=== PATIENT | female | born 1965 | race Caucasian/White ===

== ENCOUNTER 2025-03-31 13:34 | Inpatient (IN) | payer OTHER ==
[~2025-03-31] VITALS: Ht 157.5 cm; Wt 64.0 kg
[2025-03-31 13:35] VITALS: O2SAT 98
[2025-03-31] MEDS: NITROGLYCERIN 0.4MG TABLET SL SL PRN (15:05)
[2025-03-31 15:10] LABS: BASOPHILS % 0.6 % (0.0-2.0); EOSINOPHILS % 0.2 % (0.0-5.0); HEMATOCRIT. 44.1 % (36.0-48.0); HEMOGLOBIN. 14.5 g/dL (12.0-16.0); LYMPHOCYTES % 13.9 % (20.0-50.0); MEAN PLATELET VOLUME 9.4 fl (7.4-10.4); MONOCYTES % 3.8 % (2.0-8.0); NEUTROPHILS % 81.5 % (40.0-76.0); PLATELET 245 x1000/uL (130-400); RED BLOOD CELL COUNT 5.02 mill/uL (4.2-5.4); RED CELL DISTRIBUTION WIDTH 12.9 % (11.6-14.6)
[2025-03-31 15:29] LABS: CREATININE 0.7 mg/dL (0.6-1.0); UREA NITROGEN BLOOD 9 mg/dL (9-23)
[2025-03-31 15:30] LABS: TROPONIN I HIGH SENSITIVITY < 4 ng/L (3.0-34)
[2025-03-31] MEDS: MORPHINE SULFATE 4 MG/ML INJ (FOR IV/IM USE) IV ONE (15:31)
[2025-03-31 15:32] LABS: ETHANOL BLOOD < 10 mg/dL (<10)
[2025-03-31 17:23] LABS: TROPONIN I HIGH SENSITIVITY < 4 ng/L (3.0-34)
[2025-03-31] MEDS: ASPIRIN 325MG EC TABLET PO SCH (19:55)
[2025-03-31] MEDS ORDERED: ONDANSETRON HCL 4MG/2ML INJ IV PRN (20:00)
[2025-03-31] MEDS ORDERED: ACETAMINOPHEN 325MG TABLET PO PRN ×2 (20:00)
[2025-03-31] MEDS ORDERED: DOCUSATE SODIUM 100MG CAPSULE PO PRN (20:00)
[2025-03-31] MEDS ORDERED: DEXTROSE 50% WATER 50ML SYRINGE IV PRN (20:00)
[2025-03-31] MEDS ORDERED: IPRATROPIUM/ALBUTEROL 0.5-3(2.5)MG/3ML NEB HHN PRN (20:00)
[2025-03-31] MEDS: CLONIDINE 0.1MG TABLET PO PRN (20:18)
[2025-03-31] MEDS: AMLODIPINE 10MG TABLET PO SCH (21:00)
[2025-03-31] MEDS: INSULIN LISPRO 100 UNITS/ML SUBCUT SCH (21:00)
[2025-03-31] MEDS ORDERED: KETOROLAC 30MG/ML VIAL IV PRN (21:00)
[2025-03-31] MEDS ORDERED: NITROGLYCERIN 0.4MG TABLET SL SL PRN (21:00)
[2025-03-31] MEDS: BLOOD SUGAR DIAGNOSTIC STRIP TEST SCH (21:00)
[2025-03-31 22:40] LABS: CLARITY URINE CLEAR (CLEAR); COLOR URINE YELLOW (YELLOW); GLUCOSE URINE 3+ (NEGATIVE); KETONES URINE 3+ (NEGATIVE); LEUKOCYTE ESTERASE URINE NEGATIVE (NEGATIVE); NITRITE URINE NEGATIVE (NEGATIVE); OCCULT BLOOD URINE NEGATIVE (NEGATIVE); PH URINE 5.0 (4.5-8.0); PROTEIN URINE NEGATIVE (NEGATIVE); SPECIFIC GRAVITY URINE 1.021 (1.005-1.030); UROBILINOGEN URINE 0.2 E.U./dL (0.2-1.0)
[2025-03-31 22:57] LABS: *AMPHETAMINES SCREEN URINE NEGATIVE (NEGATIVE); *BARBITURATES SCREEN URINE NEGATIVE (NEGATIVE); *BENZODIAZEPINES SCREEN URINE NEGATIVE (NEGATIVE); *COCAINE SCREEN URINE NEGATIVE (NEGATIVE); CANNABINOID URINE SCREEN NEGATIVE (NEGATIVE); ECSTASY MDMA SCREEN URINE NEGATIVE (NEGATIVE); METHADONE URINE SCREEN NEGATIVE (NEGATIVE); OPIATES URINE SCREEN NEGATIVE (NEGATIVE); PHENCYCLIDINE URINE SCREEN NEGATIVE (NEGATIVE)
[2025-03-31 22:58] LABS: BACTERIA URINE TRACE; RBC URINE 0-2 /hpf (0-2); SQUAMOUS EPITHELIAL CELL URINE FEW /lpf (RARE/1+); WBC URINE 0-2 /hpf (0-2)
[2025-03-31 23:00] VITALS: BP 124/70; PULSE 70; RESP 19; TEMP 36.4; TEMP 36.418; O2SAT 97
[2025-03-31] MEDS ORDERED: METF-1150 MT (23:29)
[2025-03-31] MEDS ORDERED: LISI20TA31 MT (23:29)
[2025-03-31] MEDS ORDERED: SERT25TA74 MT (23:29)
[2025-03-31] MEDS: ATORVASTATIN CALCIUM 10MG TABLET PO SCH (23:44)
[2025-04-01 04:00] VITALS: BP 100/57; PULSE 80; RESP 18; TEMP 37; O2SAT 97
[2025-04-01 08:00] VITALS: BP 104/62; PULSE 70; RESP 20; TEMP 37; O2SAT 98
[2025-04-01 08:20] LABS: BASOPHILS % 0.9 % (0.0-2.0); EOSINOPHILS % 1.1 % (0.0-5.0); HEMATOCRIT. 41.1 % (36.0-48.0); HEMOGLOBIN. 13.7 g/dL (12.0-16.0); LYMPHOCYTES % 26.9 % (20.0-50.0); MEAN PLATELET VOLUME 9.6 fl (7.4-10.4); MONOCYTES % 6.4 % (2.0-8.0); NEUTROPHILS % 64.7 % (40.0-76.0); PLATELET 227 x1000/uL (130-400); RED BLOOD CELL COUNT 4.70 mill/uL (4.2-5.4); RED CELL DISTRIBUTION WIDTH 13.2 % (11.6-14.6)
[2025-04-01] MEDS: PANTOPRAZOLE SODIUM 40 MG/VIAL IV SCH (08:29)
[2025-04-01] MEDS: LOSARTAN 25 MG TABLET PO SCH (08:29)
[2025-04-01 08:30] LABS: CREATININE 0.6 mg/dL (0.6-1.0)
[2025-04-01] MEDS: AMLODIPINE 10MG TABLET PO SCH (08:30)
[2025-04-01] MEDS: ASPIRIN 81MG EC TABLET PO SCH (08:30)
[2025-04-01] MEDS: ENOXAPARIN 40MG/0.4ML SYR SUBCUT SCH (08:30)
[2025-04-01 08:31] LABS: CREATINE KINASE MB FRACTION < 0.5 ng/mL (0.5-3.6); LDL CHOLESTEROL 132 mg/dL (5-100); TRIGLYCERIDE 116 mg/dL (0-150); TROPONIN I HIGH SENSITIVITY < 4 ng/L (3.0-34); UREA NITROGEN BLOOD 13 mg/dL (9-23)
[2025-04-01 08:33] LABS: PHOSPHORUS 3.9 mg/dL (2.5-4.9)
[2025-04-01 08:35] LABS: T4 FREE 1.14 ng/dL (0.89-1.76)
[2025-04-01] MEDS: DEXT 5%/0.45% NACL 500ML 500 ML IV ONE (11:45)
[2025-04-01 12:00] VITALS: BP 110/71; PULSE 75; RESP 18; TEMP 36.3; O2SAT 97
[2025-04-01] MEDS ORDERED: ATOR10TA PO (14:15)
[2025-04-01] MEDS ORDERED: PANT40TA51 MT (14:15)
[2025-04-01] MEDS ORDERED: AMLO10TA80 PO (14:15)
[2025-04-01] MEDS ORDERED: ASPI-1406 PO (14:15)
[2025-04-01] MEDS ORDERED: METF-416 MT (14:16)
[2025-04-01 14:37] VITALS: BP 110/76; PULSE 82; RESP 20; TEMP 97.6
[2025-04-01 16:00] VITALS: BP 115/59; PULSE 71; RESP 20; TEMP 36.4; O2SAT 98
[2025-04-01 16:47] LABS: CREATINE KINASE MB FRACTION < 0.5 ng/mL (0.5-3.6); TROPONIN I HIGH SENSITIVITY < 4 ng/L (3.0-34)
[2025-04-01 16:48] LABS: ASPARTATE AMINOTRANSFERASE 14 IU/L (<34); BILIRUBIN DIRECT 0.1 mg/dL (<=3.0); BILIRUBIN TOTAL 0.5 mg/dL (0.1-1.0); PROTEIN TOTAL 6.6 g/dL (6.0-8.3)
== END 2025-04-01 17:53 | disposition home or self-care (01) | DRG 243 ==
LOC: ER 14:28 → 8WST 19:19 → EDBEDREQTM 19:41 → EDBEDREQ 19:41 → ENRESERV 22:09
PROVIDERS: ADMIT Internal Medicine; ATTEND Internal Medicine
DX: K21.9 Gastro-esophageal reflux disease without esophagitis (principal); E11.9 Type 2 diabetes mellitus without complications; E78.00 Pure hypercholesterolemia, unspecified; M94.0 Chondrocostal junction syndrome [Tietze]; I10 Essential (primary) hypertension; F41.9 Anxiety disorder, unspecified; Z79.82 Long term (current) use of aspirin; Z79.84 Long term (current) use of oral hypoglycemic drugs; Z79.899 Other long term (current) drug therapy
CPT/HCPCS: 36415; 71045; 80048; 80061; 80076; 80305; 80320; 81003; 82550; 82553; 82962; 83036; 83735; 84100; 84439; 84443; 84484; 85025; 93005; 97161; 99285; A4606; J1650; J1815; J2270; J2470; G0480